=== PATIENT | male | born 1950 | race Caucasian/White ===

== ENCOUNTER → 2023-08-11 07:06 | Outpatient (REF) | payer MEDICARE, SELFPAY | LOC: RAD 07:06 | PROVIDERS: ATTENDING PHYSICIAN Specialist; FAMILY PHYSICIAN Family Medicine | DX: C66.1 Malignant neoplasm of right ureter (principal) | CPT/HCPCS: 74176 ==

== ENCOUNTER 2023-08-31 06:29 | Day surgery (SDC) | payer MEDICARE, SELFPAY ==
[2023-08-27 09:07] LABS: Hematocrit 43.7 % (39.0-52.0); Hemoglobin 14.4 g/dL (13.0-18.0); Mean Corpuscular Hgb 28.7 pg (27.0-31.0); Mean Corpuscular Volume 87.1 fL (80.0-94.0); Mean Platelet Volume 9.6 fL (7.4-10.4); Platelet Count 253 10^3/uL (130-400); Red Blood Cell Count 5.02 10^6/uL (4.70-6.10); Red Cell Dist. Width 14.4 % (11.5-14.5); White Blood Cell Count 7.1 10^3/uL (4.8-10.8)
[2023-08-27 09:16] LABS: INR 1.08; PT 13.8 Sec (11.4-14.6)
[2023-08-27 09:17] LABS: APTT 28.7 Sec (23.4-35.0)
[2023-08-27 09:28] LABS: Blood Urea Nitrogen 24 mg/dl (9-20); Calcium 9.8 mg/dl (8.4-10.2); Carbon Dioxide 29 mmol/L (22-30); Chloride 107 mmol/L (98-107); Glucose 89 mg/dl (70-99); Potassium 5.3 mmol/L (3.5-5.1); Sodium 139 mmol/L (135-145); eGFR 45.78
[2023-08-27 12:42] VITALS: BMI 26.6
[2023-08-31] VITALS (8 sets, daily range): BP systolic 105–151; BP diastolic 60–90; BMI 26.6
[2023-08-31] MEDS: Pyridium 200 MG PO (13:03)
== END 2023-08-31 14:55 | disposition home or self-care (01) ==
LOC: SDS 06:29
PROVIDERS: ATTENDING PHYSICIAN Specialist; FAMILY PHYSICIAN Family Medicine; REFERRING PHYSICIAN Internal Medicine Interventional Cardiology
DX: N32.89 Other specified disorders of bladder (principal); N35.919 Unspecified urethral stricture, male, unspecified site; Z85.54 Personal history of malignant neoplasm of ureter
CPT/HCPCS: 52351; 36415; 74420; 76000; 80048; 85027; 85610; 85730; 93005; A4300; C1758

== ENCOUNTER → 2023-09-07 14:59 | Outpatient (REF) | payer MEDICARE, SELFPAY | LOC: DHCBS MAIN 14:59 | PROVIDERS: ATTENDING PHYSICIAN Nurse Practitioner; FAMILY PHYSICIAN Family Medicine | DX: I25.10 Atherosclerotic heart disease of native coronary artery without angina pectoris (principal); I47.20 Ventricular tachycardia, unspecified; I25.2 Old myocardial infarction | CPT/HCPCS: 93306 ==

== ENCOUNTER 2024-01-06 06:29 | Day surgery (SDC) | payer MEDICARE, SELFPAY ==
[2023-12-30 07:04] VITALS: BMI 25.4
[2023-12-30 08:44] LABS: Hematocrit 42.5 % (39.0-52.0); Hemoglobin 14.2 g/dL (13.0-18.0); Mean Corp Hgb Conc. 33.4 g/dL (33.0-37.0); Mean Corpuscular Hgb 29.5 pg (27.0-31.0); Mean Corpuscular Volume 88.2 fL (80.0-94.0); Mean Platelet Volume 9.7 fL (7.4-10.4); Platelet Count 251 10^3/uL (130-400); Red Blood Cell Count 4.82 10^6/uL (4.70-6.10); Red Cell Dist. Width 14.5 % (11.5-14.5); White Blood Cell Count 6.5 10^3/uL (4.8-10.8)
[2023-12-30 08:52] LABS: INR 0.97; PT 12.9 Sec (11.4-14.6)
[2023-12-30 08:53] LABS: APTT 28.2 Sec (23.4-35.0)
[2023-12-30 09:55] LABS: Blood Urea Nitrogen 18 mg/dl (9-20); Calcium 10.2 mg/dl (8.4-10.2); Carbon Dioxide 26 mmol/L (22-30); Chloride 107 mmol/L (98-107); Estimated Creatinine Clearance 41 ml/min; Glucose 99 mg/dl (70-99); Potassium 4.8 mmol/L (3.5-5.1); Sodium 138 mmol/L (135-145); eGFR 49.47
[2024-01-06 09:06] VITALS: BMI 25.4
[2024-01-06 09:36] VITALS: BP 107/59
[2024-01-06] MEDS: Pyridium 200 MG PO (09:38)
[2024-01-06] MEDS: NORMOSOL-R 1000 IV (09:38)
[2024-01-06 13:03] VITALS: BP 107/59; BP 139/69
[2024-01-06 13:15] VITALS: BP 109/70
[2024-01-06 14:00] VITALS: BP 116/65
[2024-01-06 14:17] VITALS: BP 112/64
[2024-01-06 14:34] VITALS: BP 117/65
== END 2024-01-06 14:37 | disposition home or self-care (01) ==
LOC: SDS 06:29
PROVIDERS: ATTENDING PHYSICIAN Specialist; FAMILY PHYSICIAN Family Medicine
DX: Z08 Encounter for follow-up examination after completed treatment for malignant neoplasm (principal); Z85.54 Personal history of malignant neoplasm of ureter; Z98.890 Other specified postprocedural states
CPT/HCPCS: 52351; 36415; 74420; 76000; 80048; 85027; 85610; 85730; 87070; A4300; C1894

== ENCOUNTER → 2024-11-24 10:43 | Outpatient (REF) | payer MEDICARE, SELFPAY | LOC: HWRAD 10:43 | PROVIDERS: ATTENDING PHYSICIAN Family Medicine | DX: I71.8 Aortic aneurysm of unspecified site, ruptured (principal) | CPT/HCPCS: 74150 ==

== ENCOUNTER → 2025-02-05 12:07 | Outpatient (REF) | payer MEDICARE, SELFPAY | LOC: HWRAD 12:07 | PROVIDERS: ATTENDING PHYSICIAN Internal Medicine Hematology & Oncology; PRIMARYCARE PHYSICIAN Family Medicine | DX: Z87.891 Personal history of nicotine dependence (principal) | CPT/HCPCS: 71271 ==

== ENCOUNTER → 2025-02-14 13:50 | Outpatient (REF) | payer MEDICARE, SELFPAY | LOC: MRI 13:50 | PROVIDERS: ATTENDING PHYSICIAN Specialist; FAMILY PHYSICIAN Family Medicine | DX: C66.1 Malignant neoplasm of right ureter (principal) | CPT/HCPCS: 74183; 76014; 76015; A9575 ==

== ENCOUNTER 2025-05-16 20:59 | Inpatient (IN) | payer MEDICARE, SELFPAY ==
[2025-05-08 08:49] LABS: Hematocrit 44.1 % (39.0-52.0); Hemoglobin 14.6 g/dL (13.0-18.0); Mean Corp Hgb Conc. 33.1 g/dL (33.0-37.0); Mean Corpuscular Volume 89.6 fL (80.0-94.0); Platelet Count 240 10^3/uL (130-400); Red Cell Dist. Width 14.0 % (11.5-14.5)
[2025-05-08 09:20] LABS: Blood Urea Nitrogen 24 mg/dl (9-20); Calcium 10.0 mg/dl (8.4-10.2); Carbon Dioxide 26 mmol/L (22-30); Chloride 107 mmol/L (98-107); Glucose 95 mg/dl (70-99); Potassium 4.8 mmol/L (3.5-5.1); Sodium 139 mmol/L (135-145); eGFR 48.85
[2025-05-08 14:09] VITALS: BMI 24.2
[2025-05-16] VITALS (14 sets, daily range): BP systolic 86–149; BP diastolic 40–96; BMI 24.2
[2025-05-16] MEDS: TYLENOL 1000 MG PO (12:44)
[2025-05-16] MEDS: NORMOSOL-R/PLASMALYTE-A 1000 IV ×2 (12:45→21:18)
--- NOTE | 2025-05-16 18:09 | W.IMMPOSTOP ---
Surgical Immed Post Op Note
-
Primary Surgeon: Alma
Assisting Surgeon: ELIGIO Quezada
Pre-op Diagnosis: Ventral incisional hernia
Post-op Diagnosis: Ventral incisional hernia
Procedure Performed: Open ventral incisional hernia repair with mesh
Anesthesia Type: General
Specimen / Cultures: None
Estimated Blood Loss: 51 cc
Complications: None
Operative Findings:
1. Fascial defect 6 x 8 cm (bowel easily reduced), peritoneum very thin below the arcuate line, hernia sac used to provide posterior coverage --> Bard soft 15 x 20 cm retrorectus mesh secured with transfascial sutures laterally, posterior and
anterior sheath closed primarily
2. Epigastric incisional hernia 1 x 0.5 cm --> closed primarily with 0 PDS figure of eight x2
3. 19 Fr Maxi drains into retrorectus space (right) and subcutaneous space (left)
[2025-05-16 19:20] LABS: Glucose - Point of Care 133 mg/dl (70-99)
[2025-05-16 19:30] LABS: Hematocrit 38.4 % (39.0-52.0); Hemoglobin 13.0 g/dL (13.0-18.0); Mean Corp Hgb Conc. 33.9 g/dL (33.0-37.0); Mean Corpuscular Volume 87.7 fL (80.0-94.0); Platelet Count 187 10^3/uL (130-400); Red Cell Dist. Width 14.2 % (11.5-14.5)
[2025-05-16 19:42] LABS: ALT (SGPT) 21 U/L (0-50); AST (SGOT) 26 U/L (17-59); Albumin 3.8 g/dl (3.5-5.0); Alkaline Phosphatase 62 U/L (38-126); Blood Urea Nitrogen 24 mg/dl (9-20); Calcium 8.7 mg/dl (8.4-10.2); Carbon Dioxide 18 mmol/L (22-30); Chloride 108 mmol/L (98-107); Estimated Creatinine Clearance 40 ml/min; Glucose 144 mg/dl (70-99); Potassium 4.5 mmol/L (3.5-5.1); Sodium 135 mmol/L (135-145); Total Protein 6.4 g/dl (6.3-8.2); eGFR 48.85
--- NOTE | 2025-05-16 19:43 | W.PN.UPDATE ---
Update Note
Progress Note Update
Notified by PACU nursing of post op combativeness/acute post op delirium of patient. Hostile/cursing/punching/kicking at staff. Re-sedated with assistance of anesthesia and soft restrains utilized.
Vitals stable, glucose normal and post op labs generally unremarkable.
will upgrade to IMU for closer post op monitoring.
no significant psychiatric history noted on review of chart nor prior adverse anesthesia effects with prior surgical procedures.
[2025-05-16] MEDS: NORMOSOL-R/PLASMALYTE-A IV (21:43)
[2025-05-16] MEDS: ATIVAN 0.5 MG PO (21:51)
[2025-05-16] MEDS: TOPROL XL 25 MG PO (21:51)
[2025-05-16] MEDS: TYLENOL 650 MG PO (21:51)
--- NOTE | 2025-05-16 22:18 | PTCARENOTE ---
Pt received from PACU, HR SR w/ BBB on telemetry. Pt received in 4 point soft limb restraints. Pt AAOx4, calm demeanor. Answering questions appropriately. Restraints removed. IVF as ordered. PRN PO ativan for anxiety - see SEP. FELIX drains w/ bloody
drainage. R FELIX with greater drainage than L. Abdominal dressing CDI. Pt reports 0/10 pain. Lungs clear b/l. 2L POX 98%
[2025-05-17] VITALS (8 sets, daily range): BP systolic 133–151; BP diastolic 73–94; BMI 24.4
[2025-05-17] MEDS: DILAUDID 0.5 MG IV ×2 (01:40→07:33)
[2025-05-17] MEDS: TYLENOL 650 MG PO ×5 (01:43→16:36)
--- NOTE | 2025-05-17 02:03 | PTCARENOTE ---
PRN pain management - see MAR. Pt continues to be anxious about being in the hospital, therapeutic speech utilized. Victor w/ clear yellow urine. JPs continue to drain sanguineous drainage.
[2025-05-17] MEDS: ROXICODONE 5 MG PO ×2 (05:04→20:48)
[2025-05-17] MEDS: NORMOSOL-R/PLASMALYTE-A IV ×2 (05:06→13:30)
[2025-05-17] MEDS: NORMOSOL-R/PLASMALYTE-A 1000 IV (05:07)
[2025-05-17 05:17] LABS: Hematocrit 35.8 % (39.0-52.0); Hemoglobin 12.2 g/dL (13.0-18.0); Mean Corp Hgb Conc. 34.1 g/dL (33.0-37.0); Mean Corpuscular Volume 89.1 fL (80.0-94.0); Platelet Count 192 10^3/uL (130-400); Red Cell Dist. Width 14.1 % (11.5-14.5)
[2025-05-17 05:41] LABS: Blood Urea Nitrogen 23 mg/dl (9-20); Calcium 8.3 mg/dl (8.4-10.2); Carbon Dioxide 24 mmol/L (22-30); Chloride 107 mmol/L (98-107); Estimated Creatinine Clearance 46 ml/min; Glucose 113 mg/dl (70-99); Potassium 4.8 mmol/L (3.5-5.1); Sodium 137 mmol/L (135-145); eGFR 58.01
--- NOTE | 2025-05-17 07:05 | W.PN.GS2 ---
Today's Communication / Plan
-
-- Clears
-- Marcus to be removed POD#2 with pelvic dissection and prior history
-- Home meds
-- OOB/ambulate
-- Transfer to floors
Assessment / Plan
-
Patient is a 75 yo M POD#1 s/p open ventral incisional hernia repair with mesh
AVSS
Labs notable for mild reactive leukocytosis, stable Hb, normal electrolytes, improved renal function
Issues with confusion and agitation in PACU related to anesthesia, immediately resolved upon arriving to the ICU. No need for further ICU level of care, transfer to floors. Recovering well overall.
-- Clears
-- Pain control: Tylenol, Oxycodone, avoiding NSAIDs with CKD
-- IVF
-- Marcus to be removed POD#2 with pelvic dissection and prior history
-- Home meds
-- OOB/ambulate
-- DVT: Lovenox
-- GI: PPI
-- Transfer to floors
Subjective Data
-
Date of Service: May 17, 2025
No complaints. Pain well controlled. No nausea or emesis. Minimal flatus, no BM. Mracus. No ambulation.
Objective Data
-
Intake and Output
05/16/25 05/17/25 05/18/25
06:59 06:59 06:59
Intake Total 1000 / 1000
Output Total 1805 / 1805
Balance -805 / -805
Intake:
IV fluids (Total) 1000 / 1000
IVF 1000 / 1000
Output:
Drain Output (Total) 130 / 130
Artem-Bishop A 120 / 120
Artem-Bishop B
Urine, Marcus 1675 / 1675
Vital Signs
Temp Pulse Resp BP Pulse Ox
98.5 F 74 14 140/81 99
05/17/25 03:01 05/17/25 06:45 05/17/25 06:45 05/17/25 06:00 05/17/25 06:45
Lab Results
05/17/25 04:39
05/17/25 04:39
Calcium 8.3 mg/dl (8.4-10.2) L 05/17/25 04:39
Total Bilirubin 0.6 mg/dl (0.2-1.3) 05/16/25 19:22
AST 26 U/L (17-59) 05/16/25 19:22
ALT 21 U/L (0-50) 05/16/25 19:22
Alkaline Phosphatase 62 U/L (38-126) 05/16/25 19:22
Total Protein 6.4 g/dl (6.3-8.2) 05/16/25 19:22
Albumin 3.8 g/dl (3.5-5.0) 05/16/25 19:22
Physical Exam
-
Gen: NAD, oriented x3
Abd: soft, NT/ND, non-peritoneal, dressing c/d/i, R FELIX minimal sanguinous, L FELIX minimal serosang
Patient has a marcus catheter: Yes
Patient has a central line: No
[2025-05-17] MEDS: PROTONIX IV 40 MG IV (07:34)
[2025-05-17] MEDS: WELLBUTRIN REGULAR RELEASE 150 MG PO (07:34)
[2025-05-17] MEDS: NSS (PRESERVATIVE FREE) 10 ML IV (07:34)
[2025-05-17] MEDS: LIPITOR 80 MG PO (07:50)
[2025-05-17] MEDS: TOPROL XL 25 MG PO ×2 (07:50→20:49)
--- NOTE | 2025-05-17 09:27 | PTCARENOTE ---
assessments per work list. oob tochair. orders received. downgrade to Med surg level of care. report called to [address] [place] [address].
--- NOTE | 2025-05-17 13:31 | PTCARENOTE ---
pt arrived this morning for this RN via wheelchair. abd binder intact and pt has both FELIX drains intact at this time. pt aaox3 and was oob to the chair until noon for this RN. pt oriented to the room at this time.
--- NOTE | 2025-05-17 16:23 | CM ---
CM reviewed chart, patient seen bedside, initial assessment completed.
Patient is a 75 yo M s/p open ventral incisional hernia repair with mesh.
Patient resides with his in a single story home, three steps to enter.
Patient is independent with ADLs/IADLs, reports VN in past after previous surgeries, unsure of agency.
Patient denies SNF hx.
PCP Bharath Yo, Pharmacy [facility], confirms prescription coverage.
Patient confirms transportation home from when stable.
CM will continue to follow for all d/c planning needs.
Plan; home no needs anticipated
[2025-05-17] MEDS: LOVENOX SC (17:44)
[2025-05-17] MEDS: TYLENOL PO (20:53)
[2025-05-17] MEDS: WELLBUTRIN REGULAR RELEASE PO (20:53)
[2025-05-18] MEDS: TYLENOL PO ×5 (00:47→19:37)
[2025-05-18] MEDS: DILAUDID 0.5 MG IV ×3 (04:23→19:39)
[2025-05-18] MEDS: ZOFRAN 4 MG IV ×2 (04:24→10:46)
[2025-05-18 07:00] VITALS: BP 171/93
--- NOTE | 2025-05-18 08:05 | W.PN.GS2 ---
Today's Communication / Plan
-
Patient back down to sips of clears due to the nausea vomiting overnight.
Assessment / Plan
-
Patient is a 75 yo M POD#2 s/p open ventral incisional hernia repair with mesh
AVSS
Labs pending
Imaging: None
Labs: Routine AM
Diet: NPO with sips and chips. IV fluids reordered
Analgesia: Tylenol 650mg q6 Terry, oxycodone, Dilaudid 0.5mg q2h PRN, avoid NSAIDs
Neuro/vascular checks: Per unit protocol
AC/AP: Hold home aspirin, Lovenox
Home medications: Metoprolol, bupropion
Activity: Out of bed and ambulate
Wound/Incisions/Drains: Change dressings daily. Abdominal binder. Continue drains to bulb suction.
Abx: None
Dispo: RNF
Time Spent
Total Time Spent with Patient (in minutes): 20
Subjective Data
-
Date of Service: May 18, 2025
Interval Events:
Nausea and vomiting overnight. Pain fairly well-controlled. Minimal bowel function.
Objective Data
-
Intake and Output
05/17/25 05/18/25 05/19/25
06:59 06:59 06:59
Intake Total 1000 / 1000 2920 / 2920
Output Total 1805 / 1805 3860 / 3860
Balance -805 / -805 -940 / -940
Intake:
Oral fluids 2520 / 2520
IV fluids (Total) 1000 / 1000 400 / 400
IVF 1000 / 1000
Normosol-R/Plasmalyte-A 1,000 400 / 400
ml @ 100 mls/hr IV .Q10H TERRY Rx
#:[id number]
Output:
Drain Output (Total) 130 / 130 110 / 110
Artem-Bishop A 120 / 120 70 / 70
Artem-Bishop B 40 / 40
Urine, Marcus 1675 / 1675 3750 / 3750
Vital Signs
Temp Pulse Resp BP Pulse Ox
98.8 F 80 19 133/75 96
05/17/25 23:28 05/17/25 23:28 05/17/25 23:28 05/17/25 23:28 05/17/25 23:28
Calcium 8.3 mg/dl (8.4-10.2) L 05/17/25 04:39
Total Bilirubin 0.6 mg/dl (0.2-1.3) 05/16/25 19:22
AST 26 U/L (17-59) 05/16/25 19:22
ALT 21 U/L (0-50) 05/16/25 19:22
Alkaline Phosphatase 62 U/L (38-126) 05/16/25 19:22
Total Protein 6.4 g/dl (6.3-8.2) 05/16/25 19:22
Albumin 3.8 g/dl (3.5-5.0) 05/16/25 19:22
Physical Exam
-
GENERAL/NEURO: Awake, Alert, no distress
CHEST: Unlabored breathing on RA
ABDOMEN: Soft, appropriately tender, mildly distended, incisions are clean dry and intact however there is significant strikethrough through the right sided FELIX drain is with blood staining of the binder which was removed.
Patient has a marcus catheter: No
Patient has a central line: No
[2025-05-18] MEDS: NSS (PRESERVATIVE FREE) 10 ML IV (08:25)
[2025-05-18] MEDS: D5/0.9% SODIUM CHLORIDE 1000 IV ×2 (08:25→20:28)
[2025-05-18] MEDS: PROTONIX IV 40 MG IV (08:26)
[2025-05-18] MEDS: WELLBUTRIN REGULAR RELEASE 150 MG PO ×2 (08:26→19:37)
[2025-05-18] MEDS: LIPITOR 80 MG PO (08:26)
[2025-05-18] MEDS: TYLENOL 650 MG PO (08:26)
[2025-05-18] MEDS: TOPROL XL 25 MG PO ×2 (08:26→19:38)
[2025-05-18 08:31] LABS: Hematocrit 43.3 % (39.0-52.0); Hemoglobin 14.2 g/dL (13.0-18.0); Mean Corp Hgb Conc. 32.8 g/dL (33.0-37.0); Mean Corpuscular Volume 90.0 fL (80.0-94.0); Platelet Count 237 10^3/uL (130-400); Red Cell Dist. Width 14.2 % (11.5-14.5)
[2025-05-18 08:40] LABS: Blood Urea Nitrogen 16 mg/dl (9-20); Calcium 9.7 mg/dl (8.4-10.2); Carbon Dioxide 28 mmol/L (22-30); Chloride 102 mmol/L (98-107); Estimated Creatinine Clearance 46 ml/min; Glucose 102 mg/dl (70-99); Potassium 4.7 mmol/L (3.5-5.1); Sodium 137 mmol/L (135-145); eGFR 58.01
--- NOTE | 2025-05-18 10:56 | PTCARENOTE ---
pt vomiting and c/o 7/10 left lateral mid abd pain. See MAR surgery notified
--- NOTE | 2025-05-18 11:46 | PTCARENOTE ---
NG placed right nare @50cm kimi. awaiting CXR confirmation
[2025-05-18 15:07] VITALS: BP 152/90
--- NOTE | 2025-05-18 15:19 | CM ---
Patient with new NG tube per chart review. Watch for possible need for VN supports at discharge. CM will continue to follow for discharge planning needs.
Plan; home with VN vs home with no needs.
[2025-05-18] MEDS: LOVENOX 40 MG SC (17:10)
--- NOTE | 2025-05-18 17:16 | CM ---
Patient requested referral to [facility] for drain care via phone. CM will send referral via allscripts. CM will continue to follow for discharge planning needs.
Plan; home with VN; pending acceptance will need IMM
[2025-05-18 19:35] VITALS: BP 152/88
[2025-05-18] MEDS: MELATONIN PO (22:57)
[2025-05-18 23:41] VITALS: BP 166/89
[2025-05-19] MEDS: TYLENOL PO (00:22)
[2025-05-19] MEDS: DILAUDID 0.5 MG IV ×4 (03:09→21:14)
[2025-05-19] MEDS: TYLENOL 650 MG PO ×3 (03:14→12:44)
[2025-05-19 06:00] VITALS: BMI 23.2
[2025-05-19 07:00] VITALS: BP 142/99
[2025-05-19 08:03] LABS: Hematocrit 44.0 % (39.0-52.0); Hemoglobin 14.6 g/dL (13.0-18.0); Mean Corp Hgb Conc. 33.2 g/dL (33.0-37.0); Mean Corpuscular Volume 89.4 fL (80.0-94.0); Platelet Count 245 10^3/uL (130-400); Red Cell Dist. Width 13.9 % (11.5-14.5)
[2025-05-19 08:53] LABS: Blood Urea Nitrogen 13 mg/dl (9-20); Calcium 9.6 mg/dl (8.4-10.2); Carbon Dioxide 27 mmol/L (22-30); Chloride 100 mmol/L (98-107); Estimated Creatinine Clearance 54 ml/min; Glucose 123 mg/dl (70-99); Potassium 5.1 mmol/L (3.5-5.1); Sodium 133 mmol/L (135-145); eGFR > 60.00
[2025-05-19] MEDS: NSS (PRESERVATIVE FREE) 10 ML IV (09:39)
[2025-05-19] MEDS: TOPROL XL 25 MG PO ×2 (09:40→21:10)
[2025-05-19] MEDS: ZOFRAN 4 MG IV ×2 (09:40→18:32)
[2025-05-19] MEDS: WELLBUTRIN REGULAR RELEASE 150 MG PO ×2 (09:40→21:10)
[2025-05-19] MEDS: LIPITOR 80 MG PO (09:40)
[2025-05-19] MEDS: PROTONIX IV 40 MG IV (09:40)
[2025-05-19] MEDS: D5/0.9% SODIUM CHLORIDE 1000 IV (09:49)
--- NOTE | 2025-05-19 09:55 | W.PN.GS2 ---
Addendum entered and electronically signed by Nestor Yañez MD 05/19/25 14:26:
Patient seen and examined in subsequent follow-up with surgical PA. Agree with documented progress note.
Overall Mr. Seth is feeling much better today since NG tube decompression. He is passing occasional flatus. No bowel movements. Nausea subsiding. Initial postoperative pain stable and a bit improved.
AF mild sinus tachycardia, BP stable
Labs reviewed and only notable for mild hyponatremia
AAO x 3 NAD
ABD: Softly distended, mild generalized tenderness but no rebound or guarding. Midline incision dressing clean. FELIX with serosanguineous fluid.
NG tube in place with gastric contents
A/P: POD #3
Maintain NG tube until improving GI function
Renew IV fluids and maintain current supportive care
Original Note:
Today's Communication / Plan
-
maintain ngt
Assessment / Plan
-
Patient is a 75 yo M POD#3 s/p open ventral incisional hernia repair with mesh
AVSS
Labs normal
NGT output: 300ml
FELIX drain output: 130ml
Imaging: None
Labs: Routine AM
Diet: NPO with sips and chips. Maintain IVFS.
Analgesia: Tylenol 650mg q6 Terry, oxycodone, Dilaudid 0.5mg q2h PRN, avoid NSAIDs
Neuro/vascular checks: Per unit protocol
AC/AP: Hold home aspirin, Lovenox
Home medications: Metoprolol, bupropion
Activity: Out of bed and ambulate
Wound/Incisions/Drains: Change dressings daily. Abdominal binder. Continue drains to bulb suction.
Abx: None
Dispo: RNF
Subjective Data
-
Date of Service: May 19, 2025
Patient states he feels much improved since NGT was placed. Denies nausea or vomiting (only has brief nausea when IV narcotic given then resolves). He has no bowel function yet. He has no pain.
Objective Data
-
Intake and Output
05/18/25 05/19/25 05/20/25
06:59 06:59 06:59
Intake Total 2920 / 2920 1020 / 1020
Output Total 3860 / 3860 2029 / 2029
Balance -940 / -940 -1010 / -1010
Intake:
Oral fluids 2520 / 2520 120 / 120
IV fluids (Total) 400 / 400 900 / 900
Normosol-R/Plasmalyte-A 1,000 400 / 400
ml @ 100 mls/hr IV .Q10H TERRY Rx
#:[id number]
Output:
Drain Output (Total) 110 / 110 130 / 130
Artem-Bishop A 70 / 70 65 / 65
Artem-Bishop B 40 / 40 65 / 65
Gastrointestinal tube output ( 300 / 300
Total)
[place] Sump 300 / 300
Urine, Marcus 3750 / 3750
Urine, Voided 1600 / 1600
Other:
Number of approximated MODERATE 1
amounts of urine
Vital Signs
Temp Pulse Resp BP Pulse Ox
98.4 F 109 16 142/91 96
05/19/25 07:00 05/19/25 09:40 05/19/25 07:00 05/19/25 09:40 05/19/25 07:00
Lab Results
05/19/25 07:40
05/19/25 07:40
Calcium 9.6 mg/dl (8.4-10.2) 05/19/25 07:40
Total Bilirubin 0.6 mg/dl (0.2-1.3) 05/16/25 19:22
AST 26 U/L (17-59) 05/16/25 19:22
ALT 21 U/L (0-50) 05/16/25 19:22
Alkaline Phosphatase 62 U/L (38-126) 05/16/25 19:22
Total Protein 6.4 g/dl (6.3-8.2) 05/16/25 19:22
Albumin 3.8 g/dl (3.5-5.0) 05/16/25 19:22
Physical Exam
-
GENERAL/NEURO: Awake, Alert, no distress
ABDOMEN: Soft, appropriately tender, mildly distended, incisions are clean dry and intact, FELIX drain serosanguineous
Patient has a marcus catheter: No
Patient has a central line: No
[2025-05-19 15:13] VITALS: BP 135/84
[2025-05-19] MEDS: LOVENOX 40 MG SC (18:32)
[2025-05-19 20:57] VITALS: BP 149/89
[2025-05-19] MEDS: MELATONIN PO (22:29)
[2025-05-19 23:25] VITALS: BP 117/79
[2025-05-20] MEDS: D5/0.9% SODIUM CHLORIDE 1000 IV ×2 (01:41→21:35)
[2025-05-20] MEDS: ZOFRAN 4 MG IV (04:44)
[2025-05-20] MEDS: DILAUDID 0.5 MG IV (04:45)
[2025-05-20 08:16] VITALS: BP 128/78
[2025-05-20 08:18] LABS: Hematocrit 42.7 % (39.0-52.0); Hemoglobin 13.8 g/dL (13.0-18.0); Mean Corp Hgb Conc. 32.3 g/dL (33.0-37.0); Mean Corpuscular Volume 88.6 fL (80.0-94.0); Platelet Count 248 10^3/uL (130-400); Red Cell Dist. Width 13.9 % (11.5-14.5)
--- NOTE | 2025-05-20 08:46 | W.PN.GS2 ---
Addendum entered and electronically signed by Nestor Yañez MD 05/20/25 09:12:
Patient seen and examined with surgical PA. Agree with documented progress note.
Patient states he is now passing flatus on a regular basis, no significant nausea
Appetite returning, pain controlled
AFVSS
AM labs normal
AAO x 3 NAD
ABD: Soft, no significant distention, midline incision with glue, no active drainage, no open wounds
FELIX x 2 serosanguineous fluid
A/P: POD #4; ileus resolving
NG tube removed
Clear liquid diet but cautioned patient to go slow
Original Note:
Today's Communication / Plan
-
ngt pulled at bedside
clears
Assessment / Plan
-
Patient is a 75 yo M POD#4 s/p open ventral incisional hernia repair with mesh
AVSS
Labs normal
NGT output: 225ml
FELIX drain output: 70ml
Imaging: None
Labs: Routine AM
Diet:Pulled NGT at bedside. Advance to clears (told patient to go slow)
Analgesia: Tylenol 650mg q6 Terry, oxycodone, Dilaudid 0.5mg q2h PRN, avoid NSAIDs
Neuro/vascular checks: Per unit protocol
AC/AP: Restart home aspirin, Lovenox
Home medications: Metoprolol, bupropion
Activity: Out of bed and ambulate
Wound/Incisions/Drains: Change dressings daily. Abdominal binder. Continue drains to bulb suction.
Abx: None
Dispo: RNF
Subjective Data
-
Date of Service: May 20, 2025
Patient states he feels well. He has no nausea or vomiting. HE is hungry. Passing flatus.
Objective Data
-
Intake and Output
05/19/25 05/20/25 05/21/25
06:59 06:59 06:59
Intake Total 1020 / 1020 900 / 900
Output Total 2029 1295 / 1295
Balance -1010 / -1010 -395 / -395
Intake:
Oral fluids 120 / 120
IV fluids (Total) 900 / 900 900 / 900
Output:
Drain Output (Total) 130 / 130 70 / 70
Artem-Bishop A 30 / 30
Artem-Bishop B 40 / 40
Gastrointestinal tube output ( 300 / 300 225 / 225
Total)
[place] Sump 300 / 300 225 / 225
Urine, Voided 1600 / 1600 1000 / 1000
Other:
Number of approximated MODERATE 1
amounts of urine
Vital Signs
Temp Pulse Resp BP Pulse Ox
97.7 F 84 16 128/78 97
05/20/25 08:16 05/20/25 08:16 05/20/25 08:16 05/20/25 08:16 05/20/25 08:16
Lab Results
05/20/25 07:49
Calcium 9.6 mg/dl (8.4-10.2) 05/19/25 07:40
Total Bilirubin 0.6 mg/dl (0.2-1.3) 05/16/25 19:22
AST 26 U/L (17-59) 05/16/25 19:22
ALT 21 U/L (0-50) 05/16/25 19:22
Alkaline Phosphatase 62 U/L (38-126) 05/16/25 19:22
Total Protein 6.4 g/dl (6.3-8.2) 05/16/25 19:22
Albumin 3.8 g/dl (3.5-5.0) 05/16/25 19:22
Physical Exam
-
GENERAL/NEURO: Awake, Alert, no distress
ABDOMEN: Soft, appropriately tender, not distended, incisions are clean dry and intact, FELIX drain serosanguineous
Patient has a marcus catheter: No
Patient has a central line: No
[2025-05-20 09:07] LABS: Blood Urea Nitrogen 21 mg/dl (9-20); Calcium 9.7 mg/dl (8.4-10.2); Carbon Dioxide 29 mmol/L (22-30); Chloride 104 mmol/L (98-107); Estimated Creatinine Clearance 46 ml/min; Glucose 104 mg/dl (70-99); Potassium 5.0 mmol/L (3.5-5.1); Sodium 139 mmol/L (135-145); eGFR 58.01
[2025-05-20] MEDS: PROTONIX IV 40 MG IV (10:07)
[2025-05-20] MEDS: TOPROL XL 25 MG PO ×2 (10:07→20:48)
[2025-05-20] MEDS: LIPITOR 80 MG PO (10:08)
[2025-05-20] MEDS: WELLBUTRIN REGULAR RELEASE 150 MG PO ×2 (10:08→20:48)
[2025-05-20] MEDS: NSS (PRESERVATIVE FREE) 10 ML IV (10:08)
[2025-05-20] MEDS: ROXICODONE 5 MG PO ×2 (16:07→20:49)
[2025-05-20 16:24] VITALS: BP 125/74
[2025-05-20] MEDS: LOVENOX 40 MG SC (18:00)
[2025-05-20 20:46] VITALS: BP 129/70
[2025-05-20] MEDS: MELATONIN 5 MG PO (21:35)
[2025-05-20 23:24] VITALS: BP 118/69
[2025-05-21 07:00] VITALS: BP 120/77
[2025-05-21 09:03] LABS: Hematocrit 37.3 % (39.0-52.0); Hemoglobin 12.2 g/dL (13.0-18.0); Mean Corp Hgb Conc. 32.7 g/dL (33.0-37.0); Mean Corpuscular Volume 90.5 fL (80.0-94.0); Platelet Count 225 10^3/uL (130-400); Red Cell Dist. Width 13.9 % (11.5-14.5)
[2025-05-21] MEDS: ASPIR LOW (ENTERIC COATED) 81 MG PO (09:22)
[2025-05-21] MEDS: TOPROL XL 25 MG PO ×2 (09:22→20:51)
[2025-05-21] MEDS: WELLBUTRIN REGULAR RELEASE 150 MG PO ×2 (09:22→20:51)
[2025-05-21] MEDS: LIPITOR 80 MG PO (09:22)
[2025-05-21] MEDS: NSS (PRESERVATIVE FREE) 10 ML IV (09:23)
[2025-05-21] MEDS: PROTONIX IV 40 MG IV (09:23)
--- NOTE | 2025-05-21 09:43 | W.PN.GS2 ---
Today's Communication / Plan
-
Advance diet
Dispo planning
Assessment / Plan
-
Patient is a 75 yo M POD#5 s/p open ventral incisional hernia repair with mesh
AVSS
Labs normal
FELIX drain output: 33 at 40 cc respectively.
Labs: CBC okay, BMP pending
Diet: Advance to low residue
Analgesia: Tylenol 650mg q6 Terry, oxycodone, Dilaudid 0.5mg q2h PRN, avoid NSAIDs
Neuro/vascular checks: Per unit protocol
AC/AP: Restart home aspirin, Lovenox
Home medications: Metoprolol, bupropion
Activity: Out of bed and ambulate
Wound/Incisions/Drains: Change dressings daily. Abdominal binder. Continue drains to bulb suction.
Abx: None
Dispo: RNF, possible discharge today pending Dr. Marquez's evaluation.
Time Spent
Total Time Spent with Patient (in minutes): 20
Subjective Data
-
Date of Service: May 21, 2025
Interval Events:
No acute events overnight. Slept well. Pain Controlled. Denies Nausea/Vomiting, +bowel function. Tolerating diet.
Objective Data
-
Intake and Output
05/20/25 05/21/25 05/22/25
06:59 06:59 06:59
Intake Total 900 / 900 1680 / 1680
Output Total 1295 / 1295 1223 / 1223
Balance -395 / -395 457 / 457
Intake:
Oral fluids 780 / 780
IV fluids (Total) 900 / 900 900 / 900
Output:
Drain Output (Total) 70 / 70 73 / 73
Artem-Bishop A 30 / 30 33 / 33
Artem-Bishop B 40 / 40 40 / 40
Gastrointestinal tube output ( 225 / 225
Total)
[place] Sump 225 / 225
Urine, Voided 1000 / 1000 1150 / 1150
Vital Signs
Temp Pulse Resp BP Pulse Ox
97.2 F 75 16 120/77 98
05/21/25 07:00 05/21/25 07:00 05/21/25 07:00 05/21/25 07:00 05/21/25 07:00
Lab Results
05/21/25 08:42
Calcium 9.7 mg/dl (8.4-10.2) 05/20/25 07:49
Total Bilirubin 0.6 mg/dl (0.2-1.3) 05/16/25 19:22
AST 26 U/L (17-59) 05/16/25 19:22
ALT 21 U/L (0-50) 05/16/25 19:22
Alkaline Phosphatase 62 U/L (38-126) 05/16/25 19:22
Total Protein 6.4 g/dl (6.3-8.2) 05/16/25 19:22
Albumin 3.8 g/dl (3.5-5.0) 05/16/25 19:22
Physical Exam
-
GENERAL/NEURO: Awake, Alert, no distress
CHEST: Unlabored breathing on RA
ABDOMEN: Soft, Non-Tender, Non-Distended, incisions clean dry and intact. JPs serosanguineous
Patient has a marcus catheter: No
Patient has a central line: No
[2025-05-21] MEDS: D5/0.9% SODIUM CHLORIDE 1000 IV (10:00)
[2025-05-21 10:07] LABS: Blood Urea Nitrogen 21 mg/dl (9-20); Calcium 8.9 mg/dl (8.4-10.2); Carbon Dioxide 26 mmol/L (22-30); Chloride 105 mmol/L (98-107); Estimated Creatinine Clearance 46 ml/min; Glucose 107 mg/dl (70-99); Potassium 4.4 mmol/L (3.5-5.1); Sodium 135 mmol/L (135-145); eGFR 58.01
[2025-05-21] MEDS: MIRALAX 17 GRAMS PO (10:49)
--- NOTE | 2025-05-21 10:53 | VNURNOTE ---
Home Health Liaison met with patient at bedside to discuss [facility] nurse/therapy, visits, schedule and homebound status. Patient is agreeable and understands that visits at home will be 2-3 x per week to assess and teach medical management.
Patient is aware that [facility] will contact them for start of care within a week after discharge from . Provided contact number for [facility].
[facility] referral accepted in [facility].
--- NOTE | 2025-05-21 13:00 | CM ---
Addendum entered by Roz Ellis 05/21/25 17:04:
Will support discharge when medically stable
Original Note:
Plan: Possible Discharge to home with home health services from [facility] today if stable
[2025-05-21 15:00] VITALS: BP 115/67
[2025-05-21] MEDS: LOVENOX 40 MG SC (17:32)
[2025-05-21 20:19] VITALS: BP 145/78
[2025-05-21] MEDS: MELATONIN 5 MG PO (21:20)
[2025-05-21 23:00] VITALS: BP 137/88
[2025-05-22] MEDS: D5/0.9% SODIUM CHLORIDE 1000 IV (05:13)
[2025-05-22 07:00] VITALS: BP 120/74
[2025-05-22] MEDS: LIPITOR 80 MG PO (08:30)
[2025-05-22] MEDS: ASPIR LOW (ENTERIC COATED) 81 MG PO (08:30)
[2025-05-22] MEDS: PROTONIX IV 40 MG IV (08:30)
[2025-05-22] MEDS: MIRALAX 17 GRAMS PO (08:30)
[2025-05-22] MEDS: TOPROL XL 25 MG PO (08:30)
[2025-05-22] MEDS: WELLBUTRIN REGULAR RELEASE 150 MG PO (08:30)
[2025-05-22] MEDS: NSS (PRESERVATIVE FREE) 10 ML IV (08:31)
--- NOTE | 2025-05-22 09:40 | W.PN.GS2 ---
Addendum entered and electronically signed by Raz Marquez MD 05/22/25 15:08:
Patient has had bowel movement has been tolerating a regular diet for 48 hours. Recommend MiraLAX on discharge. Will coordinate outpatient follow-up and drain management. All questions answered.
Original Note:
Today's Communication / Plan
-
Diet: Regular, started on Miralax, added milk of mag
Dispo: RNF, possible discharge today pending bowel function
Assessment / Plan
-
Patient is a 75 yo M POD#6 s/p open ventral incisional hernia repair with mesh
AVSS
No new labs
FELIX drain output serosan and 75 cc
Recovering well overall. Postoperative issues with an ileus now not surprising given the incision and surgical dissection required. Clinically improved with tolerating a regular diet and passing flatus. Still no BM postoperatively, would
recommend having a bowel movement prior to discharge given his issues. Started on MiraLAX yesterday, will add milk of magnesia for today. Discharge pending bowel function and progression throughout the day.
Labs: None new
Diet: Regular, started on Miralax, added milk of mag
Analgesia: Tylenol 650mg q6 Terry, oxycodone, Dilaudid 0.5mg q2h PRN, avoid NSAIDs
Neuro/vascular checks: Per unit protocol
AC/AP: Restart home Aspirin, Lovenox
Home medications: Metoprolol, Bupropion
Activity: Out of bed and ambulate
Wound/Incisions/Drains: Change dressings daily. Abdominal binder. Continue drains to bulb suction.
Abx: None
Dispo: RNF, possible discharge today pending bowel function
Subjective Data
-
Date of Service: May 22, 2025
No complaints, feels well. Pain well-controlled. No nausea or vomiting. Continues to pass flatus, no BM postoperatively. Ambulating. Voiding.
Objective Data
-
Intake and Output
05/21/25 05/22/25 05/23/25
06:59 06:59 06:59
Intake Total 1680 / 1680 3320 / 3320
Output Total 1223 / 1223 2155 / 2155
Balance 457 / 457 1165 / 1165
Intake:
Oral fluids 780 / 780 1920 / 1920
IV fluids (Total) 900 / 900 1400 / 1400
Output:
Drain Output (Total) 73 / 73 105 / 105
Artem-Bishop A 33 / 33 30 / 30
Artem-Bishop B 40 / 40 75 / 75
Urine, Voided 1150 / 1150 2049
Vital Signs
Temp Pulse Resp BP Pulse Ox
98.0 F 77 16 137/88 97
05/21/25 23:00 05/21/25 23:00 05/21/25 23:00 05/21/25 23:00 05/21/25 23:00
Lab Results
05/21/25 08:42
05/21/25 08:42
Calcium 8.9 mg/dl (8.4-10.2) 05/21/25 08:42
Total Bilirubin 0.6 mg/dl (0.2-1.3) 05/16/25 19:22
AST 26 U/L (17-59) 05/16/25 19:22
ALT 21 U/L (0-50) 05/16/25 19:22
Alkaline Phosphatase 62 U/L (38-126) 05/16/25 19:22
Total Protein 6.4 g/dl (6.3-8.2) 05/16/25 19:22
Albumin 3.8 g/dl (3.5-5.0) 05/16/25 19:22
Physical Exam
-
Gen: NAD
Abd: soft, minimal tenderness, ND, non-peritoneal, incision c/d/i - no erythema, ecchymosis or drainage, FELIX serosang
Patient has a marcus catheter: No
Patient has a central line: No
[2025-05-22] MEDS: MILK OF MAGNESIA 30 ML PO (09:52)
[2025-05-22 15:00] VITALS: BP 136/70
--- NOTE | 2025-05-22 15:35 | CM ---
Chart reviewed and patient is currently ambulating in hallway, plan is to home with [facility].
Plan; Home with [facility].
[2025-05-22] MEDS: FLUZONE HIGH-DOSE 2025-26 0.5 ML IM (16:20)
== END 2025-05-22 17:15 | disposition home health service (06) | DRG 354 ==
LOC: 2 NORTH 20:59
PROVIDERS: Nurse Practitioner Family; Surgery; ADMITTING PHYSICIAN Surgery; FAMILY PHYSICIAN Family Medicine
PROC: 0WUF0JZ Supplement Abdominal Wall with Synthetic Substitute, Open Approach (ICD-10-PCS; 2025-05-16)
PROC: 3E02340 Introduction of Influenza Vaccine into Muscle, Percutaneous Approach (ICD-10-PCS; 2025-05-22)
DX: K43.2 Incisional hernia without obstruction or gangrene (principal); E87.1 Hypo-osmolality and hyponatremia; F05 Delirium due to known physiological condition; K56.7 Ileus, unspecified; K66.0 Peritoneal adhesions (postprocedural) (postinfection); I25.10 Atherosclerotic heart disease of native coronary artery without angina pectoris; I73.9 Peripheral vascular disease, unspecified; J43.9 Emphysema, unspecified; Z87.891 Personal history of nicotine dependence; Z95.1 Presence of aortocoronary bypass graft; Z95.5 Presence of coronary angioplasty implant and graft; Z23 Encounter for immunization; Z85.50 Personal history of malignant neoplasm of unspecified urinary tract organ
CPT/HCPCS: 74018; 80048; 80053; 82962; 85027; 87070; C1729; C1781